=== PATIENT | male | born 1935 | race Caucasian/White ===

== ENCOUNTER 2016-09-11 22:12 | Emergency (ER) | payer OTHER ==
[~2016-09-11] VITALS: Ht 162.6 cm; Wt 68.0 kg
[2016-09-11 22:13] VITALS: BP 205/84; PULSE 74; RESP 16; TEMP 97.8; O2SAT 98
[2016-09-11] MEDS ORDERED: cloNIDine HCL 0.1 MG TAB PO ONE (22:30)
[2016-09-11] MEDS ORDERED: METO25TA3 PO (22:34)
[2016-09-11] MEDS ORDERED: METOPROLOL TARTRATE 25 MG TAB PO ONE (23:45)
--- NOTE | 2016-09-11 23:54 | PD ---
HPI Chief Complaint: Hypertension Time Seen by Provider: 22:22 Travel History International Travel<30 days: No Contact w/Intl Traveler<30days: No Traveled to known affect area: No History of Present Illness HPI Patient reports that for the last 3 days his blood pressure has been high at home. It has been approximately 200/100. He takes metoprolol. He has been off of it for about a week or so. He recently moved to [facility] and needs a refill. He has a new doctor appointment scheduled within the next couple weeks however he is not doctor. He offers no medical complaint. [facility] Past Medical History Anemia: Yes Hypertension: Yes Medical other: Yes (B-12 deficiency ) Thyroid Disease: Yes Tetanus Vaccination: < 5 Years Past Surgical History Cholecystectomy: Yes Social History Alcohol Use: Yes (rarely ) Tobacco Use: No Substance Use: No Allergies-Medications (Allergen,Severity, Reaction): Coded Allergies: No Known Allergies (Unverified , 09/11/16) Reported Meds & Prescriptions Reported Meds & Active Scripts Active Metoprolol Tartrate 25 Mg Tab 25 Mg PO DAILY 30 Days Review of Systems Except as stated in HPI: all other systems reviewed are Neg Physical Exam Narrative GENERAL: 80 yo M, NAD, WNWD SKIN: Warm and dry. HEAD: Atraumatic. Normocephalic. EYES: Pupils equal and round. No scleral icterus. No injection or drainage. ENT: No nasal bleeding or discharge. Mucous membranes pink and moist. NECK: Trachea midline. No JVD. CARDIOVASCULAR: Regular rate and rhythm. No murmur appreciated. RESPIRATORY: No accessory muscle use. Clear to auscultation. Breath sounds equal bilaterally. GASTROINTESTINAL: Abdomen soft, non-tender, nondistended. Hepatic and splenic margins not palpable. MUSCULOSKELETAL: No obvious deformities. No clubbing. No cyanosis. No edema. NEUROLOGICAL: Awake and alert. No obvious cranial nerve deficits. Motor grossly within normal limits. Normal speech. PSYCHIATRIC: Appropriate mood and affect; insight and judgment normal. Data Data Last Documented VS Vital Signs Date Time Temp Pulse Resp B/P Pulse Ox O2 Delivery O2 Flow Rate FiO2 09/12/16 00:00 68 16 226/90 99 09/11/16 22:13 97.8 BP reviewed Orders Clonidine (Catapres) (09/11/16 22:30) Metoprolol Tartrate (Lopressor) (09/11/16 23:45) Metoprolol Tartrate (Lopressor) (09/12/16 01:00) MDM Medical Decision Making Medical Screen Exam Complete: Yes Emergency Medical Condition: Yes Medical Record Reviewed: Yes Differential Diagnosis Hypertensive crisis, hypertensive emergency, medication refill Narrative Course BP down to 185/90 in ER. He remains asymptomatic. Metoprolol script. Follow up with PMD. Return precautions discussed. Diagnosis Primary Impression: Hypertension Qualified Code: I15.9 - Secondary hypertension Referrals: Primary Care Physician 2 days Additional Instructions: You have a choice when it comes to health care, and we are glad that you chose [facility]. Hopefully, we have met your expectations on today's visit. You are welcome to return to [facility] at any time, as we are committed to meeting the health care needs of our community. Med/Other Pt SpecificInfo: Prescription(s) given Scripts Metoprolol Tartrate 25 Mg Tab25 Mg PO DAILY 30 Days Ref 0 Prov:Abraham Rand MD 09/12/16 Disposition: 01 DISCHARGE HOME Condition: Stable Abraham Rand MD Sep 11, 2016 23:54
[2016-09-12] VITALS: BP 226/90; PULSE 68; RESP 16; O2SAT 99
[2016-09-12] MEDS ORDERED: METO25TA3 PO (00:33)
[2016-09-12] MEDS ORDERED: METOPROLOL TARTRATE 25 MG TAB PO ONE (01:00)
== END 2016-09-12 01:10 | disposition home or self-care (01) ==
LOC: NEPC 22:12
DX: I10 Essential (primary) hypertension (principal)
CPT/HCPCS: 99283